=== PATIENT | female | born 1990 | race Two or more races ===

== ENCOUNTER 2016-10-09 10:52 | Emergency (ER) | payer OTHER ==
--- NOTE | 2016-10-09 11:22 | PD ---
HPI Chief Complaint decreased movement Date Seen: Oct 09, 2016 Time Seen: 11:10 (Man Dawkins MD R2) Travel History International Travel<30 Days: No Contact w/Intl Traveler<30Days: No (Man Dawkins MD) History of Present Illness HPI 25 year old at 37/6 weeks gestation presents to the OB ED with report of decreased movement. Today she noticed only 4 kicks despite counting all day. She is concerned and wants to be sure the baby is ok. She has no vaginal bleeding, discharge, dysuria, loss of fluid. She does not feel contractions. No headache, blurry vision, chest pain, shortness of breath, abdominal pain, or calf tenderness. (Man Dawkins MD) History Past Medical History Narrative Medical None (Man Dawkins MD) Obstetric History Obstetric History 1.) full term, 2.) full term, This : no complications to date Receives care at [facility] Obtaining labs from there (Man Dawkins MD) Past Surgical History Narrative Surgical one (Man Dawkins MD) Family History Narrative Family History Mom: diabetes, HTN, cholesterol (Man Dawkins MD) Social History Narrative Social History No smoking, drinking, drug use (Man Dawkins MD) Allergies-Medications (Allergen,Severity, Reaction): Coded Allergies: No Known Allergies (Unverified , 10/09/16) Narrative Medication vitamins (Man Dawkins MD) Review of Systems General / Constitutional: Weight Gain, No: Fever, Weight Loss Eyes: No: Blurred Vision, Visual changes HENT: No: Headaches, Vertigo, Lightheadedness Cardiovascular: No: Irregular Rhythm, Tachycardia Respiratory: No: Cough, Short of Breath, Wheezing Gastrointestinal: No: Nausea, Vomiting, Diarrhea, Abdominal Pain, Hematemesis, Loss of Appetite Genitourinary: No: Urgency, Frequency, Dysuria, Nocturia, Hematuria, Pelvic Pain Musculoskeletal: No: Limited ROM, Weakness, Cramping, Edema Skin: No Rash, No Itching Neurologic: No: Weakness, Dizziness, Syncope, Focal Abnormalities Psychiatric: No: Anxiety, Depression, Mood Disorder Endocrine: No: Polydipsia, Polyuria Hematologic/Lymphatic: No Easy Bruising, No Lymph Node Enlargement (Man Dawkins MD R2) Physical Exam Narrative GENERAL: Sitting in chair, no distress SKIN: No rashes HEAD: Normocephalic and atraumatic. EYES: No scleral icterus. No injection or drainage. ENT: No nasal drainage noted. Mucous membranes pink. Airway patent. NECK: Supple, trachea midline. No JVD. CARDIOVASCULAR: Regular rate and rhythm without murmurs, gallops, or rubs. RESPIRATORY: Breath sounds equal bilaterally. No accessory muscle use. ABDOMEN/GI: Abdomen soft, non-tender, bowel sounds present, no rebound, no guarding Gravid to 38 weeks size GENITOURINARY: External Genitalia: Normal Dilatation: 3 cm Effacement: 50% Station: -3 Presentation: [-] Membranes: intact Uterine Contractions: irregular FHT's: Category: 1 Baseline: 150's Reactive: yes Variability: minimal Decels: none EXTREMITIES: No cyanosis or edema. BACK: Nontender without obvious deformity. No CVA tenderness. NEUROLOGICAL: Awake and alert. Motor and sensory grossly within normal limits. Five out of 5 muscle strength in all muscle groups. Normal speech. (Man Dawkins MD R2) Data Data Vital Signs Reviewed: Yes (Man Dawkins MD R2) MDM Medical Record Reviewed: Yes Interpretation(s) 25 year old at 37/6 weeks gestation presented with decreased movement. Not feeling contractions but there are contractions on monitor and a history of a very short labor. - Non-stress test, monitoring - Labor check due to contractions, monitor progress - Hydration - Urinalysis - Instruct on kick count - Close follow up with OB, within 48 hours. - Regular NST and ultrasounds if decreased movement persistent - BPP for minimal variability on strip Narrative Course / MDM 25 year old at 37/6 weeks gestation presented with decreased movement. Not feeling contractions but there are regular contractions on the monitor. However, no progression of cervical labor even after walking around the unit. - kick counts at home - Follow up with OB within 48 hours - Regular NST's and US's if decreased movement persistent - Labor ruled out, having contractions but no progression of cervical dilation or effacement. - Return to OB ED if contractions increase in intensity and frequency, or for sudden loss of fluid or vaginal bleeding, or if continued decreased movements. (Man Dawkins MD R2) Diagnosis Diagnosis: Primary Impression: Decreased movement affecting management of Additional Impression: Uterine contractions during Disposition: 01 DISCHARGE HOME Condition: Good Attestation Patient seen and examined with the resident under direct supervision and agree with the assessment and plan. (Tate Levin MD) Man Dawkins MD R2 Oct 09, 2016 11:22 Tate Levin MD Oct 09, 2016 17:43
[2016-10-09 11:24] VITALS: TEMP 97.9
[2016-10-09 11:25] VITALS: BP 119/75; PULSE 76; RESP 18
[2016-10-09 11:52] LABS: BACTERIA, URINE RARE /hpf; BLOOD, URINE SMALL (NEG); COMMENT (UR) CULT NOT INDICATED; CULTURE IF INDICATED CULT NOT INDICATED; GLUCOSE,URINE NEG (NEG); KETONE, URINE NEG (NEG); NITRITE,URINE NEG (NEG); PH, URINE 5.5 (5.0-8.5); SQUAMOUS EPITHELIAL CELL URINE 4 /hpf (0-5); URINE COLOR YELLOW (YELLW/STRAW)
== END 2016-10-09 15:47 | disposition home or self-care (01) ==
LOC: HOBED 10:52
DX: O36.8130 Decreased fetal movements, third trimester, not applicable or unspecified (principal); Z3A.37 37 weeks gestation of pregnancy
CPT/HCPCS: 59025; 76816; 76819; 81001

== ENCOUNTER 2016-10-20 22:05 | Inpatient (IN) | payer MEDICAID, OTHER ==
[~2016-10-20] VITALS: Ht 154.9 cm; Wt 73.5 kg
--- NOTE | 2016-10-20 22:27 | PD ---
HPI Chief Complaint possible LOF Date Seen: Oct 20, 2016 Travel History International Travel<30 Days: No Contact w/Intl Traveler<30Days: No History of Present Illness HPI 25 yo @ 39w3d with SIL 10-24-2016. care transferred from [facility] to [facility] in August 2016. Patient with prior and a successful . Patient presents today with c/o possible LOF. GBS positive. History Past Medical History Medical History: Denies Significant Hx Obstetric History Obstetric History 2005 for distress 2008 x 1, 3900g Past Surgical History Narrative Surgical Family History Family History: Negative Social History Alcohol Use: No Tobacco Use: No Substance Abuse: No Allergies-Medications (Allergen,Severity, Reaction): Coded Allergies: No Known Allergies (Unverified , 10/09/16) Review of Systems General / Constitutional: No: Fever, Chills HENT: No: Headaches, Lightheadedness Cardiovascular: No: Chest Pain or Discomfort, Palpitations Respiratory: No: Cough, Short of Breath Gastrointestinal: Abdominal Pain (contractions), No: Nausea, Vomiting Genitourinary: Discharge (clear fluid), No: Urgency, Frequency, Vaginal Bleeding Musculoskeletal: No: Limited ROM, Weakness Skin: No Rash, No Itching Neurologic: No: Weakness, Dizziness Physical Exam Narrative GENERAL: Well-nourished, well-developed patient. SKIN: Warm and dry. HEAD: Normocephalic and atraumatic. EYES: No scleral icterus. No injection or drainage. ENT: No nasal drainage noted. Mucous membranes pink. Airway patent. NECK:trachea midline. No JVD. CARDIOVASCULAR: Regular rate and rhythm without murmurs, gallops, or rubs. RESPIRATORY: Breath sounds equal bilaterally. No accessory muscle use. ABDOMEN/GI: Abdomen soft, non-tender, no rebound, no guarding Gravid GENITOURINARY: External Genitalia: intact and normal in appearance BUS glands: [-] Dilatation: 5 Effacement: 80 Station: -2 Presentation: vtx Membranes: SROM, clear fluid Uterine Contractions: q5min FHT's: Category: I Baseline: 135 Reactive: +accelerations Variability: mod Decels: [-] EXTREMITIES: No cyanosis or edema. NT BACK: Nontender without obvious deformity. Normal ROM NEUROLOGICAL: Awake and alert. Motor and sensory grossly within normal limits. Normal speech. Data Data Vital Signs Reviewed: Yes Orders Vital Signs (Adult) .ON ADMISSION (10/20/16 22:14) ^ Labor Status (10/20/16 22:14) ^ Non Stress Test (10/20/16 22:14) Pamg-1 Test .ONCE (10/20/16 22:14) MDM Narrative Course / MDM 39 weeks Hx of and x 1 Desires RADHA. Discussed risk of rupture of uterus and repeat if indicated. CAT I FHT GBS Positive SROM, clear fluid Plan Admit Active labor with SROM Karolina for prophylaxis Undecided on epidural Physician Communication D/w Dr. Francois Mcdaniel,Unique Burnham MD Oct 20, 2016 22:27
[2016-10-20] MEDS ORDERED: LACTATED RINGER'S 1000 ML INJ 1,000 ML IV PRN (22:34)
[2016-10-20] MEDS ORDERED: LIDOCAINE HCL 1% 50 ML VIAL INFIL PRN (22:45)
[2016-10-20] MEDS ORDERED: LIDOCAINE HCL 1% 50 ML VIAL I-DERMAL PRN (22:45)
[2016-10-20] MEDS ORDERED: PENICILLIN G POTASSIUM INJ 5,000,000 UNITS in SODIUM CHLORIDE 0.9% INJ 100 ML IV ONE (22:45)
[2016-10-20] MEDS ORDERED: SODIUM CHLORID 0.9% 500 ML INJ 500 ML IV PRN (22:45)
[2016-10-20] MEDS ORDERED: CITRIC ACID-SODIUM CITRATE LIQ 30 ML UDC PO SCH (22:45)
[2016-10-20] MEDS ORDERED: MINERAL OIL 10 ML VIAL TOPICAL PRN (22:45)
[2016-10-20] MEDS ORDERED: OXYTOCIN 30 UNITS-500ML PREMIX 500 ML IV ONE (22:45)
[2016-10-20] MEDS ORDERED: ONDANSETRON HCL 4 MG/2 ML VIAL IV PRN (22:45)
[2016-10-20] MEDS ORDERED: SODIUM CHLOR 0.9% 1000 ML INJ 1,000 ML IV PRN (22:54)
--- NOTE | 2016-10-20 22:55 | HHI.HP ---
History & Physical H&P HPI Chief Complaint possible LOF Date Seen: Oct 20, 2016 Travel History International Travel<30 Days: No Contact w/Intl Traveler<30Days: No History of Present Illness HPI 25 yo @ 39w3d with SIL 10-24-2016. care transferred from [facility] to [facility] in August 2016. Patient with prior and a successful . Patient presents today with c/o possible LOF. GBS positive. History (Limited) History Past Medical History Medical History: Denies Significant Hx Obstetric History Obstetric History 2005 for distress 2008 x 1, 3900g Past Surgical History Narrative Surgical Family History Family History: Negative Social History Alcohol Use: No Tobacco Use: No Substance Abuse: No Allergies-Medications Allergies-Medications (Allergen,Severity, Reaction): Coded Allergies: No Known Allergies (Unverified , 10/09/16) ROS Review of Systems General / Constitutional: No: Fever, Chills HENT: No: Headaches, Lightheadedness Cardiovascular: No: Chest Pain or Discomfort, Palpitations Respiratory: No: Cough, Short of Breath Gastrointestinal: Abdominal Pain (contractions), No: Nausea, Vomiting Genitourinary: Discharge (clear fluid), No: Urgency, Frequency, Vaginal Bleeding Musculoskeletal: No: Limited ROM, Weakness Skin: No Rash, No Itching Neurologic: No: Weakness, Dizziness Physical Exam Physical Exam Narrative GENERAL: Well-nourished, well-developed patient. SKIN: Warm and dry. HEAD: Normocephalic and atraumatic. EYES: No scleral icterus. No injection or drainage. ENT: No nasal drainage noted. Mucous membranes pink. Airway patent. NECK:trachea midline. No JVD. CARDIOVASCULAR: Regular rate and rhythm without murmurs, gallops, or rubs. RESPIRATORY: Breath sounds equal bilaterally. No accessory muscle use. ABDOMEN/GI: Abdomen soft, non-tender, no rebound, no guarding Gravid GENITOURINARY: External Genitalia: intact and normal in appearance BUS glands: [-] Dilatation: 5 Effacement: 80 Station: -2 Presentation: vtx Membranes: SROM, clear fluid Uterine Contractions: q5min FHT's: Category: I Baseline: 135 Reactive: +accelerations Variability: mod Decels: [-] EXTREMITIES: No cyanosis or edema. NT BACK: Nontender without obvious deformity. Normal ROM NEUROLOGICAL: Awake and alert. Motor and sensory grossly within normal limits. Normal speech. Data Data Data Vital Signs Reviewed: Yes Orders Vital Signs (Adult) .ON ADMISSION (10/20/16 22:14) ^ Labor Status (10/20/16 22:14) ^ Non Stress Test (10/20/16 22:14) Pamg-1 Test .ONCE (10/20/16 22:14) MDM MDM Narrative Course / MDM 39 weeks Hx of and x 1 Desires RADHA. Discussed risk of rupture of uterus and repeat if indicated. CAT I FHT GBS Positive SROM, clear fluid Plan Admit Active labor with SROM Karolina for prophylaxis Undecided on epidural Physician Communication D/w Unique Bond MD Oct 20, 2016 22:27 Unique Mcdaniel MD Oct 20, 2016 22:55
[2016-10-20] MEDS ORDERED: CALNTAB (23:26)
[2016-10-20] MEDS: LACTATED RINGER'S 1000 ML INJ 1,000 ML IV SCH (23:36)
[2016-10-20 23:39] LABS: AUTOMATED NEUTROPHIL # 9.5 TH/MM3 (1.8-7.7); BASOPHIL % 0.3 % (0.0-2.0); EOSINOPHIL # 0.1 TH/MM3 (0-0.4); EOSINOPHIL % 0.6 % (0.0-4.0); HEMATOCRIT 37.8 % (35.0-46.0); HEMO FLAGS DIFF FINAL; LYMPH % 18.3 % (9.0-44.0); LYMPHOCYTE # 2.3 TH/MM3 (1.0-4.8); MEAN CELL VOLUME 83.2 FL (80.0-100.0); MEAN CORPUSCULAR HEMOGLOBIN 28.1 PG (27.0-34.0); MEAN CORPUSCULAR HGB CONC 33.8 % (32.0-36.0); MONO % 5.4 % (0.0-8.0); NEUT % 75.4 % (16.0-70.0); PLATELET COUNT 260 TH/MM3 (150-450); RED BLOOD COUNT 4.54 MIL/MM3 (4.00-5.30); RED CELL DISTRIBUTION WIDTH 18.7 % (11.6-17.2); WHITE BLOOD COUNT 12.6 TH/MM3 (4.0-11.0)
[2016-10-21] VITALS (61 sets, daily range): BP systolic 68–135; BP diastolic 39–87; PULSE 65–130; RESP 18–20; TEMP 98–98.5
[2016-10-21] MEDS ORDERED: ePHEDrine/NS 25 MG/5 ML SYR ONE (01:08)
[2016-10-21] MEDS ORDERED: fentaNYL 2MCG-BUPIV 0.125% INJ 100 ML ONE (01:08)
[2016-10-21] MEDS ORDERED: fentaNYL 2MCG-BUPIV 0.125% INJ 100 ML EPIDURAL SCH (03:00)
[2016-10-21] MEDS ORDERED: DO NOT ADMINISTER ANTICOAGULANTS XX PRN (03:00)
[2016-10-21] MEDS ORDERED: ePHEDrine/NS 50 MG/5 ML SYR IV PRN (03:00)
[2016-10-21] MEDS ORDERED: NO SYSTEM NARCOTICS XX PRN (03:00)
[2016-10-21 03:16] LABS: BACTERIA, URINE FEW /hpf; BLOOD, URINE MOD (NEG); COMMENT (UR) CULTURE INDICATED; CULTURE IF INDICATED CULTURE INDICATED; GLUCOSE,URINE NEG (NEG); KETONE, URINE NEG (NEG); MUCUS URINE FEW /lpf (OCC); NITRITE,URINE NEG (NEG); PH, URINE 6.5 (5.0-8.5); SQUAMOUS EPITHELIAL CELL URINE 10 /hpf (0-5); URINE COLOR YELLOW (YELLW/STRAW)
[2016-10-21] MEDS: PENICILLIN G POTASSIUM INJ 2,500,000 UNITS in SODIUM CHLORIDE 0.9% INJ 100 ML IV SCH ×2 (03:45→06:45)
[2016-10-21] MEDS: LACTATED RINGER'S 1000 ML INJ 1,000 ML IV SCH (06:34)
[2016-10-21] MEDS ORDERED: OXYTOCIN 30 UNITS/NS 500ML PREMIX IV SCH (08:15)
--- NOTE | 2016-10-21 08:20 | PD.OB.DELI ---
Delivery Date: Oct 21, 2016 Anesthesia: Epidural Episiotomy: None Vaginal Delivery: Normal Presentation: Occiput anterior Nuchal Cord: x1 (non-reducible) Infant: Male One Minute : 9 Five Minute : 9 Weight: [id number] Infant Care: Suctioned, Spontaneous crying, Responded to stimulation Placenta: Spontaneous delivery, Intact, Other (grossly normal) Laceration: No lacerations Additional Information 25 yo @ 39 weeks, presented with SROM in labor. GBS positive, Karolina received. trial of labor. Received Pitocin augmentation. with non- reducible nuchal x 1. Placenta spontaneous and intact, grossly normal. No laceration requiring repair. EBL 150ml. Unique Mcdaniel MD Oct 21, 2016 08:20
[2016-10-21] MEDS ORDERED: oxyCODONE/ACETAMINOPHEN 5 MG/325 MG TAB PO PRN (08:30)
[2016-10-21] MEDS ORDERED: BENZOCAINE 20% TOPICAL SPRAY 60 ML CAN TOPICAL PRN (08:30)
[2016-10-21] MEDS ORDERED: WITCH HAZEL 50%/GLYCERIN 12.5% 40 PAD JAR TOPICAL PRN (08:30)
[2016-10-21] MEDS ORDERED: DOCUSATE SODIUM 50 MG/SENNA 8.6 MG TAB PO PRN (08:30)
[2016-10-21] MEDS ORDERED: SODIUM CHLORIDE 0.9% FLUSH 5 ML FLUSH IV PRN (08:30)
[2016-10-21] MEDS ORDERED: ALUMINUM/MAGNESIUM/SIMETH 30 ML CUP PO PRN (08:30)
[2016-10-21] MEDS ORDERED: ONDANSETRON ODT 4 MG TAB PO PRN (08:30)
[2016-10-21] MEDS ORDERED: SODIUM CHLORIDE 0.9% FLUSH 5 ML FLUSH IV SCH (09:00)
[2016-10-21] MEDS: IBUPROFEN 600 MG TAB PO PRN ×2 (09:50→14:58)
[2016-10-21] MEDS ORDERED: MEASLES, MUMPS, RUBELLA VACCINE 0.5 ML VIAL SQ ONE (16:00)
[2016-10-21] MEDS ORDERED: DIPHTH/TETANUS/ACEL PERTUSSIS (BOOSTER) 0.5 ML VIAL/PFS IM ONE (16:00)
[2016-10-21] MEDS: ACETAMINOPHEN 325 MG TAB PO PRN (20:12)
[2016-10-21] MEDS ORDERED: ZOLPIDEM TARTRATE 5 MG TAB PO PRN (21:00)
[2016-10-22 08:00] VITALS: BP 113/59; PULSE 70; RESP 18; TEMP 98.2
--- NOTE | 2016-10-22 08:45 | HHI.OB ---
Subjective Post Day: 1 Remarks delvered precipitously doing well no circumcision Objective Vitals/I&O Vital Signs Date Time Temp Pulse Resp B/P Pulse Ox O2 Delivery O2 Flow Rate FiO2 10/21/16 19:50 98.0 73 18 115/65 10/21/16 10:40 74 10/21/16 09:48 84 121/71 10/21/16 09:30 72 117/68 10/21/16 09:25 72 113/74 10/21/16 09:24 20 10/21/16 08:58 75 20 117/72 Objective Remarks GENERAL: Well-nourished, well-developed patient. CARDIOVASCULAR: Regular rate and rhythm without murmurs, gallops, or rubs. RESPIRATORY: Breath sounds equal bilaterally. No accessory muscle use. ABDOMEN/GI: Abdomen soft, non-tender. Fundus: Firm, non-tender at umbilicus. GENITOURINARY: Light to moderate bleeding. EXTREMITIES: No cyanosis or edema, non-tender, without signs of DVT. Medications and IVs Current Medications Medications (Trade) Dose Ordered Sig/Josh Route Start Time Stop Time Status Last Admin Lactated Ringer's 1,000 ml @ 125 mls/hr Q8H IV 10/20/16 22:34 10/20/16 23:36 Lactated Ringer's 1,000 ml @ 3,000 mls/hr Q20M PRN IV 10/20/16 22:34 10/20/16 23:36 (NS 1000 ml Inj) 1,000 ml @ 100 mls/hr Q10H PRN IV 10/20/16 22:54 (Zofran Inj) 4 mg Q6H PRN IV 10/20/16 22:45 10/21/16 04:25 (fentaNYL INJ) 50 mcg Q1H PRN IV PUSH 10/20/16 22:45 Fentanyl Citrate 100 mcg 100 mcg Q1H PRN IV PUSH 10/20/16 22:45 10/21/16 04:26 (Pfizerpen-G Inj/ NS Inj) 100 ml @ 200 mls/hr Q4H IV 10/21/16 02:45 10/21/16 03:45 Mineral Oil 10 ml 10 ml UNSCH PRN TOPICAL 10/20/16 22:45 Fentanyl/ Bupivacaine HCl 100 ml @ 0 mls/hr TITRATE EPIDURAL 10/21/16 03:00 10/21/16 07:39 (Pitocin 30 Units-NS 500 ml Premix) 500 ml @ 0 mls/hr TITRATE IV 10/21/16 08:15 (NS Flush) 2 ml BID IV 10/21/16 09:00 (NS Flush) 2 ml UNSCH PRN IV 10/21/16 08:30 (Tylenol) 650 mg Q4H PRN PO 10/21/16 08:30 10/21/16 20:12 (Motrin) 600 mg Q6H PRN PO 10/21/16 08:30 10/21/16 14:58 (Percocet 5-325 Mg) 1 tab Q4H PRN PO 10/21/16 08:30 (Percocet 5-325 Mg) 2 tab Q4H PRN PO 10/21/16 08:30 (Americaine 20% Top Spr) 1 spray Q4H PRN TOPICAL 10/21/16 08:30 (Tucks Pads) 1 applic QID PRN TOPICAL 10/21/16 08:30 (Rosemary-Colace) 2 tab Q12H PRN PO 10/21/16 08:30 10/21/16 14:58 (Ambien) 5 mg HS PRN PO 10/21/16 21:00 (Mag-Al Plus Susp Liq) 15 ml Q8H PRN PO 10/21/16 08:30 10/21/16 23:08 (Zofran Odt) 4 mg Q6H PRN PO 10/21/16 08:30 Assessment/Plan Discharge Planning discharge Attending Attestation unremarkable PPD1 Kaitlin Wood MD Oct 22, 2016 08:45
[2016-10-22 19:18] VITALS: BP 115/70; PULSE 85; RESP 18; TEMP 98.2
[2016-10-22] MEDS: ACETAMINOPHEN 325 MG TAB PO PRN (19:31)
[2016-10-23] MEDS: oxyCODONE/ACETAMINOPHEN 5 MG/325 MG TAB PO PRN ×2 (01:42→10:32)
[2016-10-23] MEDS: IBUPROFEN 600 MG TAB PO PRN ×2 (01:42→10:31)
[2016-10-23 02:42] VITALS: RESP 16
[2016-10-23] MEDS: PENICILLIN G POTASSIUM INJ 2,500,000 UNITS in SODIUM CHLORIDE 0.9% INJ 100 ML IV SCH (02:45)
--- NOTE | 2016-10-23 07:56 | HHI.OB ---
Subjective Post Day: 2 Remarks no complaints Objective Vitals/I&O Vital Signs Date Time Temp Pulse Resp B/P Pulse Ox O2 Delivery O2 Flow Rate FiO2 10/23/16 02:42 16 10/23/16 02:42 16 10/22/16 20:47 18 10/22/16 19:18 98.2 85 18 115/70 10/22/16 08:00 98.2 70 18 113/59 Objective Remarks GENERAL: Well-nourished, well-developed patient. CARDIOVASCULAR: Regular rate and rhythm without murmurs, gallops, or rubs. RESPIRATORY: Breath sounds equal bilaterally. No accessory muscle use. ABDOMEN/GI: Abdomen soft, non-tender. Fundus: Firm, non-tender at umbilicus. GENITOURINARY: Light to moderate bleeding. EXTREMITIES: No cyanosis or edema, non-tender, without signs of DVT. Medications and IVs Current Medications Medications (Trade) Dose Ordered Sig/Josh Route Start Time Stop Time Status Last Admin Lactated Ringer's 1,000 ml @ 125 mls/hr Q8H IV 10/20/16 22:34 10/20/16 23:36 Lactated Ringer's 1,000 ml @ 3,000 mls/hr Q20M PRN IV 10/20/16 22:34 10/20/16 23:36 (NS 1000 ml Inj) 1,000 ml @ 100 mls/hr Q10H PRN IV 10/20/16 22:54 (Zofran Inj) 4 mg Q6H PRN IV 10/20/16 22:45 10/21/16 04:25 (fentaNYL INJ) 50 mcg Q1H PRN IV PUSH 10/20/16 22:45 Fentanyl Citrate 100 mcg 100 mcg Q1H PRN IV PUSH 10/20/16 22:45 10/21/16 04:26 (Pfizerpen-G Inj/ NS Inj) 100 ml @ 200 mls/hr Q4H IV 10/21/16 02:45 10/21/16 03:45 Mineral Oil 10 ml 10 ml UNSCH PRN TOPICAL 10/20/16 22:45 Fentanyl/ Bupivacaine HCl 100 ml @ 0 mls/hr TITRATE EPIDURAL 10/21/16 03:00 10/21/16 07:39 (Pitocin 30 Units-NS 500 ml Premix) 500 ml @ 0 mls/hr TITRATE IV 10/21/16 08:15 (NS Flush) 2 ml BID IV 10/21/16 09:00 (NS Flush) 2 ml UNSCH PRN IV 10/21/16 08:30 (Tylenol) 650 mg Q4H PRN PO 10/21/16 08:30 10/22/16 19:31 (Motrin) 600 mg Q6H PRN PO 10/21/16 08:30 10/23/16 01:42 (Percocet 5-325 Mg) 1 tab Q4H PRN PO 10/21/16 08:30 10/23/16 01:42 (Percocet 5-325 Mg) 2 tab Q4H PRN PO 10/21/16 08:30 (Americaine 20% Top Spr) 1 spray Q4H PRN TOPICAL 10/21/16 08:30 (Tucks Pads) 1 applic QID PRN TOPICAL 10/21/16 08:30 (Rosemary-Colace) 2 tab Q12H PRN PO 10/21/16 08:30 10/21/16 14:58 (Ambien) 5 mg HS PRN PO 10/21/16 21:00 (Mag-Al Plus Susp Liq) 15 ml Q8H PRN PO 10/21/16 08:30 10/21/16 23:08 (Zofran Odt) 4 mg Q6H PRN PO 10/21/16 08:30 Assessment/Plan Problem List: (1) , delivered, current hospitalization Assessment and Plan s/p Discharge Planning discharge Attending Attestation pt seen by Martita Mejia MD Oct 23, 2016 07:56
[2016-10-23] MEDS ORDERED: IBUP-232 PO (07:58)
--- NOTE | 2016-10-23 07:58 | HHI.DCPOC ---
Discharge Care Plan Your Health Problems Are: Pelvic pain Report Symptoms to Your Doctor -Temperate above 100.5 degrees -Redness, of incision or excessive or foul smelling drainage -Unusual pain or calf pain -Increased vaginal bleeding -Painful or difficulty urinating -Feelings of extreme sadness or anxiety after 2 weeks Goals to Promote Your Health * To prevent worsening of your condition and complications * To maintain your health at the optimal level Directions to Meet Your Goals Take your medications as prescribed Follow your dietary instruction Follow activity as directed Ensure plenty of rest for recovery Drink fluids for hydration Keep your appointments as scheduled Take your immunizations and boosters as scheduled If your symptoms worsen call your PCP, if no PCP go to Urgent Care Center or Emergency Room Smoking is Dangerous to Your Health. Avoid second hand smoke Call the 24-hour crisis hotline for domestic abuse at Martita Robles MD Oct 23, 2016 07:58
== END 2016-10-23 12:02 | disposition home or self-care (01) | DRG 775 ==
LOC: HOBED 22:05 → H2EA 22:41 → H1EA 10-21 10:40
PROVIDERS: ADMIT Obstetrics & Gynecology; ATTEND Obstetrics & Gynecology
PROC: 10E0XZZ Delivery of Products of Conception, External Approach (ICD-10-PCS; principal; 2016-10-21)
DX: O34.219 Maternal care for unspecified type scar from previous cesarean delivery (principal); O99.824 Streptococcus B carrier state complicating childbirth; O69.81X0 Labor and delivery complicated by cord around neck, without compression, not applicable or unspecified; Z37.0 Single live birth; Z3A.39 39 weeks gestation of pregnancy
CPT/HCPCS: 59025; 81001; 84112; 85025; 86900; 86901; 87086; 90715; J2405; J2540; J2590; J3010; J7120